=== PATIENT | female | born 1945 | race Caucasian/White ===

== ENCOUNTER → 2023-11-07 14:00 | Outpatient (REF) | payer MEDICARE, BC, SELFPAY | LOC: WDC 14:00 | PROVIDERS: ATTENDING PHYSICIAN Nurse Practitioner Family | DX: Z12.31 Encounter for screening mammogram for malignant neoplasm of breast (principal) | CPT/HCPCS: 77063; 77067 ==

== ENCOUNTER → 2023-12-21 14:27 | Outpatient (REF) | payer MEDICARE, BC, SELFPAY | LOC: RAD 14:27 | PROVIDERS: ATTENDING PHYSICIAN Podiatrist Primary Podiatric Medicine; FAMILY PHYSICIAN Nurse Practitioner Family | DX: M79.675 Pain in left toe(s) (principal); M79.672 Pain in left foot | CPT/HCPCS: 73630 ==

== ENCOUNTER → 2024-02-01 15:13 | Outpatient (REF) | payer MEDICARE, BC, SELFPAY | LOC: RAD 15:13 | PROVIDERS: ATTENDING PHYSICIAN Podiatrist Primary Podiatric Medicine; FAMILY PHYSICIAN Nurse Practitioner Family | DX: M25.572 Pain in left ankle and joints of left foot (principal); M79.672 Pain in left foot | CPT/HCPCS: 73630 ==

== ENCOUNTER → 2024-06-19 11:14 | Outpatient (REF) | payer MEDICARE, BC, SELFPAY ==
[2024-06-19 12:41] LABS: Albumin 4.3 g/dl (3.5-5.0); Calcium 9.6 mg/dl (8.4-10.2)
[2024-06-19 12:48] LABS: Prealbumin (Transthyretin) 28.8 mg/dl (17.6-36.0)
== END ==
LOC: REG 11:14
PROVIDERS: ATTENDING PHYSICIAN Student in an Organized Health Care Education/Training Program; FAMILY PHYSICIAN Nurse Practitioner Family
DX: E55.9 Vitamin D deficiency, unspecified (principal)
CPT/HCPCS: 36415; 82040; 82652; 83970; 84134

== ENCOUNTER → 2024-11-11 13:42 | Outpatient (REF) | payer MEDICARE, BC, SELFPAY | LOC: WDC 13:42 | PROVIDERS: ATTENDING PHYSICIAN Nurse Practitioner Family | DX: Z12.31 Encounter for screening mammogram for malignant neoplasm of breast (principal) | CPT/HCPCS: 77063; 77067 ==

== ENCOUNTER → 2025-01-15 13:31 | Outpatient (REF) | payer MEDICARE, BC, SELFPAY | LOC: RCS 13:31 | PROVIDERS: ATTENDING PHYSICIAN Internal Medicine Cardiovascular Disease; FAMILY PHYSICIAN Nurse Practitioner Family | DX: I34.0 Nonrheumatic mitral (valve) insufficiency (principal); R60.0 Localized edema | CPT/HCPCS: 93306 ==

== ENCOUNTER 2025-03-01 19:48 | Emergency (ER) | payer MEDICARE, BC, SELFPAY ==
[2025-03-01 19:55] VITALS: BP 134/78
--- NOTE | 2025-03-01 22:47 | ED.MUSCINJ ---
HPI-Injury
<Amol Baumann MD, Resident - Last Filed: 03/02/25 00:05>
General
Chief Complaint: Fall
Source: patient and family
Exam Limitations: none
Time Seen by Provider: 03/01/25 22:36
Nursing documentation reviewed up to this point in time: agreed with
History of Present Illness-Injury
Is this injury a work related problem?: No
Is pt an associate of [facility]?: No
Initial Injury comments:
This is a 79-year-old female with history of hypertension, hyperlipidemia, GERD, lupus, back pain presenting in the emergency department with complaints of right ankle pain. She reports that around 7 PM she was going to the kitchen when she lost
her footing and fell forward she tried to hold the door frame and hit the side of her head but during the fall she twisted her right ankle. Patient denies loss of consciousness, denies any headache reports that the head hit very slightly on the
door frame and she is not concerned about it. She experienced instant pain in her right ankle she tried wdzo-evd-ijduadc naproxen and Tylenol which provided minimal benefit she also experienced some swelling which prompted her to visit the
emergency department. Reports that while she is resting in the emergency department the pain is improved to 3/10 from 5/10 initially.
Past History
<Amol Baumann MD, Resident - Last Filed: 03/02/25 00:05>
Past History
ED Past Medical History: GERD, HTN, Hypercholesterolemia and Other (Back pain, migraine, lupus, depression)
ED Past Surgical History: Orthopedic (Right knee in 1962, 1997, left foot in 2008, 2010, 2013, right total hip in 2017, cataract)
Patient has exhibited threatening behavior?: No
Social History
Tobacco: Non-smoker
Alcohol: Occasional
Drug: None
Personal:
Living: with family
Family History
Family History: Other (Noncontributory)
Review of Systems
<Amol Baumann MD, Resident - Last Filed: 03/02/25 00:05>
Review of Systems
Allergies reviewed?: Yes
Constitutional: Denies fever or chills
EENT: Denies sore throat
Respiratory: Denies cough
Cardiac: Denies chest pain
ABD/GI: Denies abdominal pain
: Denies dysuria
Musculoskeletal: Reports joint pain, joint swelling, muscle pain and other (Right ankle)
Skin: Denies itching
Neurological: Denies dizzy, headache, weakness or numbness
Endocrine: Denies polyuria
Hematologic/Lymphatic: Denies no symptoms or bleeding
Musculoskeletal Injury Exam
<Amol Baumann MD, Resident - Last Filed: 03/02/25 00:05>
Musculoskeletal Injury Exam
Right Lateral Ankle:
Pain with Movement?: Moderate
Tender to palpation?: Mild
Soft tissue swelling?: Mild
External deformity and angulation?: None
Joint effusion?: None
Contusion?: None
Hematoma-local bleeding into tissue?: None
Strain- Sprain- Tear (Connective tissue injury)?: Other (Possible)
Crepitus with movement?: No
Joint instability?: No
Malalignment/deformity?: No
Range of motion: Limited (Because of pain)
Distal skin color and temperature: normal-warm & good color
Capillary Refill: normal
Normal distal neurovascular exam?: Yes
Phy Exam
<Amol Baumann MD, Resident - Last Filed: 03/02/25 00:05>
Physical Exam
Physical Exam:
.
Cardiovascular Exam
Cardiovascular Exam: regular rate/rhythm and no murmur
Pulmonary Exam
Pulmonary Exam: lungs clear and no crackles
Neurological Exam
Neurological Exam: alert, oriented x3, CN II-XII intact, no motor deficits and no sensory deficits
Injury Course
<Amol Baumann MD, Resident - Last Filed: 03/02/25 00:05>
Orders/Labs/Results
Orders:
Orders
03/01/25 19:59
CR Ankle - Right Min 3 Views * Urgent
Comment:
Reason For Exam: fall, injury
03/01/25 22:54
Ortho Boot Right- Treatment ONCE
Short or tall?: Tall
<Odessa Stephenson, DO - Last Filed: 03/01/25 23:10>
Orders/Labs/Results
Orders:
Orders
03/01/25 19:59
CR Ankle - Right Min 3 Views * Urgent
Comment:
Reason For Exam: fall, injury
03/01/25 22:54
Ortho Boot Right- Treatment ONCE
Short or tall?: Tall
<Amol Baumann MD, Resident - Last Filed: 03/02/25 00:05>
MDM/Problems Addressed
Differential Diagnosis Includes:
Ankle sprain vs less likely fracture
MDM/Problems Addressed:
Right ankle x-ray without any osseous abnormality.
Discussed the importance of protective mechanism to avoid making the injury worse including rest, ice, compression, elevation.
Discussed the use of floe-aep-wfhbuma pain medications including Tylenol and ibuprofen.
Ortho boot for right foot ordered. ; If unable to bear the weight will consider a walker; she is not an ideal candidate for crutches.
Patient refused the CT for head at this time. She refused any neurological symptoms. States that head hit the door frame but it was very mild and she has no concern for that at this time.
Return precautions reviewed.
Shared decision was made with the patient for discharge home. Patient was understanding agree with the plan.
<Amol Baumann MD, Resident - Last Filed: 03/02/25 00:05>
*Pulse Oximetry
SaO2: 97
Oxygen Mode of Delivery: Room air
Patient hypoxic: no
*Critical Care Note
Total Time (30-74mins, 75-104mins- exclusive of procedures): Not Applicable
ED Attending Note
<Amol Baumann MD, Resident - Last Filed: 03/02/25 00:05>
-
Portions of this chart may have been created with voice recognition software.� Occasional wrong word or��sound alike� substitutions may have occurred due to the inherent limitations of voice recognition software.
<Odessa Stephenson DO - Last Filed: 03/01/25 23:10>
ED Attending Note
Patient seen and examined by attending physician: Yes
I performed a history and physical exam of patient and discussed management with resident, I reviewed resident's note and agree with documented findings and plan of care.: Yes
ED Attending Note:
This is a maynor 79-year-old woman with history of hypertension, hyperlipidemia, lupus who suffered a mechanical fall at home twisting her right ankle. She also notes mild head injury reporting that she struck her head lightly on a door frame. No
loss of consciousness, was able to get herself up but notes moderate pain to right ankle. Initially unable to bear weight but after taking a dose of Tylenol as well as naproxen, she reports moderate improvement in pain and able to partially bear
weight. She denies neck nor back pain, no chest pain or abdominal pain, no nausea or vomiting, no dizziness nor lightheadedness nor palpitations.
She denies knee or hip pain. No weakness nor numbness. She takes no anticoagulants.
79-year-old woman appears her stated age, bright and alert, pleasant, appears in no acute distress. is accompanying.
The head is normocephalic, atraumatic.
Neck is supple, nontender.
Right ankle with mild to moderate global soft tissue swelling. Moderate tenderness about the ankle with moderately restricted range of motion of ankle related to pain. There is no crepitus, no ecchymosis nor erythema. No tenderness to the foot
nor lower leg nor toes. Peripheral pulses are full and equal bilaterally. Sensation and strength intact.
Concern for right ankle fracture.
She does report lightly striking her head on a door frame. There is no physical evidence of head injury/contusion. She denies headache, takes no anticoagulants. No focal neurodeficits. At this point no indication for CT of the head.
Right ankle x-ray is unremarkable. No evidence of fracture.
Will place in tall Ortho boot and assess weightbearing status. The patient unable to bear weight will provide walker for ambulation assistance. Due to advanced age we will avoid crutches.
She has also been provided with an ice pack and recommend she elevate her ankle, apply ice 15 to 20 minutes 4-5 times per day over the next 2 days.
Continue [id number]-zyj-[id number] pain medication.
Follow-up with PCP and patient will be referred to orthopedics as well.
Discharge Plan
Departure
Patient Disposition: Home (Routine Discharge)
Date of Disposition: 03/02/25
Time of Disposition: 00:03
Patient with high blood pressure during this ER visit?: Yes
Discharge Problem:
Right ankle sprain
Instructions: Ankle sprain - ED discharge instructions, BLOOD PRESSURE
Prescriptions:
No Action
atorvastatin 40 MG tablet
40 mg PO DAILY
amlodipine 5 MG tablet
5 mg PO DAILY
ranitidine HCl 75 MG tablet
75 mg PO BID
cholecalciferol (vitamin D3) [Vitamin D3] 1,000 UNIT capsule
1,000 unit PO DAILY
bupropion HCl 300 MG tablet extended release 24 hr
300 mg PO DAILY
sennosides [senna] 1 TABLET tablet
2 tab PO BID Qty: 0 0RF
acetaminophen 325 MG tablet
650 mg PO Q4HWA Qty: 0 0RF
prednisone 10 MG tablet
40 mg PO TAPER Qty: 10 0RF
Rx Instructions:
4 tabs 6/2, 3 tabs 6/3, 2 tabs 6/4, 1 tab 6/5, then stop
polyethylene glycol 3350 17 GRAMS powder in packet
17 grams PO DAILY Qty: 0 0RF
magnesium hydroxide 30 ML suspension
30 ml PO DAILYPRN PRN (Reason: constipation) Qty: 0 0RF
aspirin 325 MG tablet,delayed release (DR/EC)
325 mg PO DAILY Qty: 0 0RF
docusate sodium 100 MG capsule
100 mg PO BID Qty: 0 0RF
oxycodone 5 MG tablet
5 mg PO Q4HPRN PRN (Reason: moderate-severe pain) Qty: 90 0RF
Rx Instructions:
dx amanda
1-2 tabs
calcium carbonate-vitamin D3 [Oyster Shell Calcium-Vit D3] 500 MG tablet
500 mg PO DAILY Qty: 0 0RF
Referrals:
Joseluis Diallo MD [Active, Orthopedics] - Follow up in 5-7 days
Alena Maldonado CRNP [Family Provider, Family Practice]
Activity Restrictions/Additional Instructions:
You were seen and [facility] emergency department with concerns of right ankle pain, we performed a right ankle x-ray which did not show any osseous abnormality. Ortho boot was ordered for your right foot. Information for the orthopedic
is attached with the paperwork. You can also follow with Dr. Dobbs who you saw in the past for the hip replacement. Additional recommendation for ankle sprain�with this paperwork. if you develop any new symptoms worsening of the current symptoms
or any worrisome concern please return to the emergency department.
Interventions
Interventions:
*Risk Screen - Suicide Last Done: 03/01/25 19:55
*General Assessment Last Done: 03/01/25 19:55
*Neglect/Abuse Screening Last Done: 03/01/25 19:55
ED-Musculoskeletal Assessment Last Done: 03/02/25 00:01
ED- Neurological Assessment Last Done: 03/02/25 00:01
ED-Skin Assessment Last Done: 03/02/25 00:01
Discharge Date and Time
Print Language: SWEDISH
[2025-03-02 00:10] VITALS: BP 139/88
== END 2025-03-02 00:21 | disposition home or self-care (01) ==
LOC: EMR 19:48
PROVIDERS: EMERGENCY PHYSICIAN Emergency Medicine; FAMILY PHYSICIAN Nurse Practitioner Family
DX: S93.401A Sprain of unspecified ligament of right ankle, initial encounter (principal); S09.90XA Unspecified injury of head, initial encounter; W01.198A Fall on same level from slipping, tripping and stumbling with subsequent striking against other object, initial encounter; I10 Essential (primary) hypertension; E78.00 Pure hypercholesterolemia, unspecified
CPT/HCPCS: 99283; 73610

== ENCOUNTER → 2025-04-05 09:47 | Outpatient (REF) | payer MEDICARE, BC, SELFPAY | LOC: PAVMRI 09:47 | PROVIDERS: ATTENDING PHYSICIAN Student in an Organized Health Care Education/Training Program; FAMILY PHYSICIAN Nurse Practitioner Family | DX: M25.571 Pain in right ankle and joints of right foot (principal) | CPT/HCPCS: 73721 ==

== ENCOUNTER → 2025-07-25 14:22 | Outpatient (REF) | payer MEDICARE, BC, SELFPAY ==
[2025-07-25 15:09] LABS: Hematocrit 38.4 % (37.0-47.0); Hemoglobin 13.0 g/dL (12.0-16.0); Mean Corp Hgb Conc. 33.9 g/dL (33.0-37.0); Mean Corpuscular Volume 92.5 fL (81.0-99.0); Nucleated Red Blood Cells % 0 %; Platelet Count 186 10^3/uL (130-400); Red Cell Dist. Width 12.4 % (11.5-14.5)
[2025-07-25 15:34] LABS: Blood Urea Nitrogen 23 mg/dl (7-17); Calcium 9.3 mg/dl (8.4-10.2); Carbon Dioxide 27 mmol/L (22-30); Chloride 104 mmol/L (98-107); Glucose 90 mg/dl (70-99); Potassium 4.3 mmol/L (3.5-5.1); Sodium 138 mmol/L (135-145); eGFR > 60.00
== END ==
LOC: RCS 14:22
PROVIDERS: ATTENDING PHYSICIAN Physician Assistant Surgical; FAMILY PHYSICIAN Family Medicine; REFERRING PHYSICIAN Internal Medicine Cardiovascular Disease
DX: Z01.818 Encounter for other preprocedural examination (principal)
CPT/HCPCS: 36415; 80048; 85025; 93005

== ENCOUNTER → 2025-07-31 11:06 | Outpatient (REF) | payer MEDICARE, BC, SELFPAY | LOC: RAD 11:06 | PROVIDERS: ATTENDING PHYSICIAN Family Medicine | DX: Z13.820 Encounter for screening for osteoporosis (principal); Z78.0 Asymptomatic menopausal state | CPT/HCPCS: 77080 ==